=== PATIENT | male | born 2000 | race Caucasian/White ===

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

== ENCOUNTER 2022-06-15 20:43 | Emergency (ER) | payer OTHER ==
[~2022-06-15] VITALS: Ht 180.3 cm; Wt 81.8 kg
[2022-06-15 20:52] VITALS: BP 147/70
== END 2022-06-15 22:00 | disposition left against medical advice (07) ==
LOC: EMS 20:45
DX: Z53.21 Procedure and treatment not carried out due to patient leaving prior to being seen by health care provider (principal)

== ENCOUNTER 2022-07-15 01:33 | Emergency (ER) | payer OTHER ==
[~2022-07-15] VITALS: Ht 182.9 cm; Wt 90.9 kg
[2022-07-15] MEDS: IBUPROFEN 600 MG TABLET PO ONE (02:29)
[2022-07-15 03:33] VITALS: BP 131/82
== END 2022-07-15 03:37 | disposition home or self-care (01) ==
LOC: EMS 01:36
DX: S43.101A Unspecified dislocation of right acromioclavicular joint, initial encounter (principal); W19.XXXA Unspecified fall, initial encounter; Y93.89 Activity, other specified; Y92.89 Other specified places as the place of occurrence of the external cause; Y99.8 Other external cause status; G43.909 Migraine, unspecified, not intractable, without status migrainosus
CPT/HCPCS: 71101; 99284; 73030-TC; Z7502; Z7610